=== PATIENT | male | born 1980 | race Caucasian/White ===

== ENCOUNTER 2021-08-27 02:46 | Emergency (ER) | payer SELFPAY ==
[~2021-08-27] VITALS: Ht 170.2 cm; Wt 84.8 kg
[~2021-08-27 02:46] MED LIST: AMOX500 PO; AMOX875 PO; CRUTCH3 USE; CRUTCH4 USE; CYCL10 PO; DIAZ5 PO; DIPATR PO; ESCI20; HYDACE5 PO; IBUP600 PO; LORA1 PO; META800 PO; NAPR500 PO; NAPR550 PO; OXYACE5T PO; PROACE50 PO; PROM25 PO; RXCYCL10 PO; RXERYTOPTH OP; RXTRAM50 PO; TOBR.3OPSO OP; TRAM50 PO; VENL75
== END 2021-08-27 03:58 | disposition home or self-care (01) ==
LOC: ER 02:46
DX: L02.411 Cutaneous abscess of right axilla (principal); F17.200 Nicotine dependence, unspecified, uncomplicated
CPT/HCPCS: 10060; 99283-25